=== PATIENT | female | born 1955 | race Caucasian/White ===

== ENCOUNTER 2018-07-25 07:52 | Outpatient (CLI) | payer OTHER | END 2018-07-25 07:53 | disposition home or self-care (01) | LOC: BICMAMMO 07:52 | PROVIDERS: ATTEND Obstetrics & Gynecology | DX: Z12.31 Encounter for screening mammogram for malignant neoplasm of breast (principal); Z80.3 Family history of malignant neoplasm of breast | CPT/HCPCS: 77063; 77067 ==

== ENCOUNTER 2018-07-26 07:44 | Outpatient (CLI) | payer OTHER ==
--- NOTE | 2018-07-26 08:43 | ULT ---
LIMITED LEFT BREAST ULTRASOUND: DATE: 07/26/18. PROVIDED CLINICAL HISTORY: Abnormal mammogram. FINDINGS: Comparison is made with the screening mammogram dated 07/25/18. Limited sonographic interrogation was performed at the inner aspect of the left breast in the region of mammographic concern at 2 o'clock. There is a circumscribed focus of diminished echogenicity demonstrating mild internal heterogeneous echotexture likely reflecting a cluster of cysts or a debris-filled cyst. This measures approximate ly 6 mm and likely corresponds to the mammographic finding. IMPRESSION: BI-RADS category 3 - probably benign findings. Six-month followup left breast ultrasound recommended . POS: TRAM
== END 2018-07-26 07:45 | disposition home or self-care (01) ==
LOC: BICMAMMO 07:44
PROVIDERS: ATTEND Obstetrics & Gynecology
DX: R92.8 Other abnormal and inconclusive findings on diagnostic imaging of breast (principal)

== ENCOUNTER 2019-07-31 08:41 | Outpatient (CLI) | payer OTHER ==
--- NOTE | 2019-07-31 09:41 | MMO ---
Bilateral MAMMO Bilat Diag [facility]. CLINICAL HISTORY: Patient is 64 years old and is seen for diagnostic exam. The patient has no family history of breast cancer. The patient has no personal history of cancer. VIEWS: The views performed were: bilateral craniocaudal with tomosynthesis; bilateral mediolateral oblique with tomosynthesis; and bilateral mediolateral with tomosynthesis. FILMS COMPARED: The present examination has been compared to prior imaging studies performed at [facility] on 06/22/2016, 07/22/2017, 07/25/2018 and 07/31/2019. This study has been interpreted with the assistance of computer-aided detection. MAMMOGRAM FINDINGS: There are scattered fibroglandular densities. Left breast nodule is stable. F/U US is recommended in 6 months. In the right breast, there are no suspicious masses, calcifications or areas of architectural distortion. IMPRESSION: FINDING IN THE LEFT BREAST IS PROBABLY BENIGN. FOLLOW-UP IN 6 MONTHS IS RECOMMENDED. THE RESULTS OF THIS EXAM WERE SENT TO THE PATIENT. ACR BI-RADS Category 3 - Probably benign finding - short interval follow-up suggested. [facility] will notify the patient of the need for additional imaging services. MAMMOGRAPHY NOTE: 1. A negative mammogram report should not delay a biopsy if a dominant of clinically suspicious mass is present. 2. Approximately 10% to 15% of breast cancers are not detected by mammography. 3. Adenosis and dense breasts may obscure an underlying neoplasm. Reported by: ROSALIO ROME MD Electonically Signed: [id number]
--- NOTE | 2019-07-31 11:18 | ULT ---
LEFT BREAST ULTRASOUND: HISTORY: Followup. FINDINGS: Comparison is made with the ultrasound of 07/26/2018. Correlation is made with mammogram of the same date. There is a stable 6 mm cystic lesion at the 12 o'clock position of the left breast which may either r epresent a cluster of cysts or a default cyst. IMPRESSION: BIRADS category 3 - probably benign findings. Six-month followup left breast ultrasound is recommend ed. POS: OFF
== END 2019-07-31 08:42 | disposition home or self-care (01) ==
LOC: BICMAMMO 08:41
PROVIDERS: ATTEND Obstetrics & Gynecology
DX: N60.09 Solitary cyst of unspecified breast (principal)
CPT/HCPCS: 77066; G0279

== ENCOUNTER 2020-01-31 08:36 | Outpatient (CLI) | payer OTHER ==
--- NOTE | 2020-01-31 09:37 | ULT ---
ULTRASOUND LEFT BREAST: Date: 01/31/2020 INDICATION: Ultrasound left breast performed to follow-up prior ultrasound exam from 07/31/2019. FINDINGS: On today's exam, the tiny complex cystic lesion at 2 o'clock is again seen. It is slightly smaller to day and has a more simple cystic appearance. It measures in the 3-4 mm range and is seen at 2 o'clock 1.0 cm from the nipple. No other significant findings seen today. IMPRESSION: BI-RADS Category 2 - Benign findings. Recommend bilateral mammogram exam in 6 months which is time fo r patient's annual screening study.
== END 2020-01-31 08:37 | disposition home or self-care (01) ==
LOC: BICULT 08:36
PROVIDERS: ATTEND Obstetrics & Gynecology
DX: N63.20 Unspecified lump in the left breast, unspecified quadrant (principal)

== ENCOUNTER 2020-08-16 08:10 | Outpatient (CLI) | payer MEDICARE, OTHER ==
--- NOTE | 2020-08-16 08:51 | MMO ---
Bilateral MAMMO Bilat Screen [facility]. CLINICAL HISTORY: Patient is 65 years old and is seen for screening. The patient has no family history of breast cancer. The patient has no personal history of cancer. VIEWS: The views performed were: bilateral craniocaudal with tomosynthesis and bilateral mediolateral oblique with tomosynthesis. FILMS COMPARED: The present examination has been compared to prior imaging studies performed at [facility] on 07/25/2018, 07/31/2019 and 01/31/2020. This study has been interpreted with the assistance of computer-aided detection. MAMMOGRAM FINDINGS: There are scattered fibroglandular densities. New benign skin calcifications are noted today in left breast. There are no suspicious masses, suspicious calcifications, or new areas of architectural distortion. IMPRESSION: THERE IS NO MAMMOGRAPHIC EVIDENCE OF MALIGNANCY. A ROUTINE FOLLOW-UP MAMMOGRAM IN 1 YEAR IS RECOMMENDED. THE RESULTS OF THIS EXAM WERE SENT TO THE PATIENT. ACR BI-RADS Category 2 - Benign finding MAMMOGRAPHY NOTE: 1. A negative mammogram report should not delay a biopsy if a dominant of clinically suspicious mass is present. 2. Approximately 10% to 15% of breast cancers are not detected by mammography. 3. Adenosis and dense breasts may obscure an underlying neoplasm. Reported by: KALEIGH CARMONA MD Electonically Signed: [id number]
== END 2020-08-16 08:11 | disposition home or self-care (01) ==
LOC: BICMAMMO 08:10
PROVIDERS: ATTEND Obstetrics & Gynecology
DX: Z12.31 Encounter for screening mammogram for malignant neoplasm of breast (principal)
CPT/HCPCS: 77063; 77067

== ENCOUNTER 2021-08-20 09:08 | Outpatient (CLI) | payer MEDICARE, OTHER | END 2021-08-20 09:09 | disposition home or self-care (01) | LOC: BICMAMMO 09:08 | PROVIDERS: ATTEND Physician Assistant | DX: Z12.31 Encounter for screening mammogram for malignant neoplasm of breast (principal) | CPT/HCPCS: 77063; 77067 ==

== ENCOUNTER 2022-10-02 08:57 | Outpatient (CLI) | payer MEDICARE, OTHER | END 2022-10-02 08:58 | disposition home or self-care (01) | LOC: BICMAMMO 08:57 | PROVIDERS: ATTEND Physician Assistant | DX: Z12.31 Encounter for screening mammogram for malignant neoplasm of breast (principal) | CPT/HCPCS: 77063; 77067 ==